=== PATIENT | female | born 1970 | race Caucasian/White ===

== ENCOUNTER 2018-03-30 16:40 | Emergency (ER) | payer MEDICARE, MEDICAID ==
[2018-03-30 17:05] VITALS: TEMP 98.1
[2018-03-30 17:25] VITALS: BP 119/69; PULSE 87; RESP 16; O2SAT 94
== END 2018-03-30 18:10 | disposition home or self-care (01) | DRG 914 ==
LOC: ED 16:40
DX: S09.90XA Unspecified injury of head, initial encounter (principal); W06.XXXA Fall from bed, initial encounter; R40.2362 Coma scale, best motor response, obeys commands, at arrival to emergency department; R40.2142 Coma scale, eyes open, spontaneous, at arrival to emergency department; R40.2252 Coma scale, best verbal response, oriented, at arrival to emergency department
CPT/HCPCS: 99282

== ENCOUNTER 2018-06-08 14:50 | Emergency (ER) | payer MEDICARE, MEDICAID ==
[2018-06-08 15:15] VITALS: RESP 16
[2018-06-08 16:28] VITALS: TEMP 97.6
[2018-06-08 16:29] VITALS: O2SAT 97
[2018-06-08 16:30] VITALS: BP 104/76; PULSE 87
== END 2018-06-08 16:25 | disposition home or self-care (01) | DRG 951 ==
LOC: ED 14:50
DX: Z04.89 Encounter for examination and observation for other specified reasons (principal); W19.XXXA Unspecified fall, initial encounter; R40.2362 Coma scale, best motor response, obeys commands, at arrival to emergency department; R40.2142 Coma scale, eyes open, spontaneous, at arrival to emergency department; R40.2252 Coma scale, best verbal response, oriented, at arrival to emergency department
CPT/HCPCS: 70450; 99282; 99283; G0390